=== PATIENT | male | born 1955 | race Caucasian/White ===

== ENCOUNTER → 2018-01-15 09:32 | Outpatient (CLI) | payer BC, SELFPAY ==
[2018-01-15 10:56] LABS: Hematocrit 44.1 % (40-54); Hemoglobin 14.2 g/dl (13.0-16.5); Mean Corp Hgb Conc 32.2 g/gl (32-36); Mean Corpuscular Hgb 31.1 pg (27.0-32.0); Mean Corpuscular Volume 96.5 fL (80-94); Mean Platelet Vol. 9.8 fl (6.2-12.0); Platelet Count 185 K/mm3 (150-450); RBC Distribution Width CV 13.4 % (11.6-14.6); RBC Distribution Width SD 47.8 fl (35.1-43.9); Red Blood Count 4.57 M/mm3 (4.6-6.2); Scan Indicated on CBC? Y/N NO; White Blood Count 6.1 K/mm3 (4.4-11.0)
[2018-01-15 12:04] LABS: ALB/GLOB Ratio 0.8 RATIO (0.9-2.4); AST(SGOT) 31 U/L (15-37); Alanine Aminotransfer ALT/SGPT 46 U/L (16-61); Albumin, Serum 3.4 g/dL (3.2-5.0); Alkaline Phosphatase 119 U/L (45-117); Anion Gap 8 (5-15); BUN 23 mg/dL (7-18); BUN/Creat Ratio 20.4 RATIO (10-20); Calcium,Total 8.4 mg/dL (8.5-10.1); Chloride 108 mmol/L (98-107); Creatinine, Serum 1.13 mg/dL (0.70-1.30); EST Glomerular Filtration Rate 70 mL/min (>60); Est Glom Filt Rate - Afr Amer 85 mL/min (>60); Glucose 245 mg/dL (74-106); Magnesium 2.2 mg/dL (1.6-2.6); Potassium 4.4 mmol/L (3.5-5.1); Prolactin 13.4 ng/mL; Protein, Total 7.4 g/dL (6.4-8.2); Sodium Level 140 mmol/L (136-145)
[2018-01-24 17:05] LABS: Vitamin D,25 Hydroxy 14.8 ng/mL (29.95-100.01)
[2018-01-27 12:20] LABS: PSA, Total Ultrasensitive 0.6 ng/mL (0.0-4.0); Testosterone Free 7.2 pg/mL (6.6-18.1)
== END ==
DX: D35.2 Benign neoplasm of pituitary gland (principal); E55.9 Vitamin D deficiency, unspecified; E29.1 Testicular hypofunction; E83.42 Hypomagnesemia; N42.9 Disorder of prostate, unspecified
CPT/HCPCS: 36415; 80053; 82306; 83735; 84146; 84153; 84154; 84402; 85027

== ENCOUNTER → 2018-04-16 09:37 | Outpatient (CLI) | payer BC, SELFPAY ==
[2018-04-16 12:10] LABS: ALB/GLOB Ratio 0.9 RATIO (0.9-2.4); AST(SGOT) 21 U/L (15-37); Alanine Aminotransfer ALT/SGPT 37 U/L (16-61); Albumin, Serum 3.4 g/dL (3.2-5.0); Alkaline Phosphatase 103 U/L (45-117); Anion Gap 7 (5-15); BUN 18 mg/dL (7-18); BUN/Creat Ratio 15.1 RATIO (10-20); Calcium,Total 9.1 mg/dL (8.5-10.1); Chloride 108 mmol/L (98-107); Cholesterol 101 mg/dL (200); Creatinine, Serum 1.19 mg/dL (0.70-1.30); EST Glomerular Filtration Rate 66 mL/min (>60); Est Glom Filt Rate - Afr Amer 80 mL/min (>60); Globulin 3.7 g/dL (2.2-4.2); Glucose 139 mg/dL (74-106); High Density Lipoprotein 32 mg/dL; Magnesium 2.2 mg/dL (1.6-2.6); Potassium 4.7 mmol/L (3.5-5.1); Prolactin 15.6 ng/mL; Protein, Total 7.1 g/dL (6.4-8.2); Sodium Level 145 mmol/L (136-145); Triglycerides 156 mg/dL; Very Low Density Lipoprotein 31 mg/dL (5-40)
[2018-04-20 08:45] LABS: Vitamin D,25 Hydroxy 65.6 ng/mL (29.95-100.01)
[2018-04-20 12:09] LABS: Testosterone, Free 11.72 ng/dL (5.00-21.00)
[2018-04-20 13:35] LABS: Testosterone, % Free 3.34 % (1.50-4.20); Testosterone, Total 351 ng/dL (264-916)
== END ==
PROVIDERS: Visit Provider Internal Medicine Endocrinology, Diabetes & Metabolism
DX: D35.2 Benign neoplasm of pituitary gland (principal); E78.2 Mixed hyperlipidemia; E55.9 Vitamin D deficiency, unspecified; E29.1 Testicular hypofunction; E83.42 Hypomagnesemia
CPT/HCPCS: 36415; 80053; 80061; 82306; 83735; 84146; 84402; 84403

== ENCOUNTER → 2019-01-13 | Outpatient (CLI) | payer BC, SELFPAY ==
--- NOTE | 2019-01-13 18:15 | MRI_ITS ---
HISTORY:RIGHT foot, 2nd MTPJ plantar plate tear. Pain ball of right foot and 2nd proximal toe If symptoms persist consider mri for further evaluation if clinically indicated. MRI EXAMINATION OF THE Right FOOT COMPARISON: None # of images including paperwork:[id number] TECHNIQUE: Sagittal T1 and STIR, iaxial T1 and T2, and coronal T2-weighted images FINDINGS: Bones: There is minimal marrow edema that is seen within the plantar aspect of the great toe as well as at the medial sesamoid. Subchondral cyst formation is seen at the plantar surface of the great toe. Also at the articular surface of the first metatarsal head. Osteophyte formation is seen at the first metatarsal head. There is also osteophyte formation seen at the second metatarsal head. Minimal edema seen within the second metatarsal head. The remainder of the osseous structures are intact Joints: There is a small joint effusion seen at the first metatarsophalangeal joint. There is also a joint effusion seen at the second metatarsophalangeal joint. This Soft tissues: There is an abnormal appearance to the medial and lateral collateral ligament complex of the second digit seen best on axial T1 weighted images 16 through 18 in addition . In addition there is discontinuity of the plantar plate at this level both medially and laterally. Evaluation in the long axis is limited due to motion The flexor tendons to the second toe are irregular particularly seen on the sagittal plane and suspect a high-grade tear. There is also plantar displacement of the tendon again compatible with a plantar plate tear.The visualized soft tissues are unremarkable. The extensor tendons appear intact. The remainder of the flexor tendons appear intact. Tendons: The visualized foot tendons are intact without splitting, increased or decreased caliber, or discontinuity identified. IMPRESSION: Findings compatible with a plantar plate injury of the second toe as discussed. There is also a suspected high-grade tear involving the flexor tendons to the second toe as discussed. There is also plantar displacement of the flexor tendons. There is a joint effusion at the second metatarsophalangeal joint as well as the first metatarsophalangeal joint with degenerative changes seen at the first metatarsophalangeal joint as well as at the metatarsal medial sesamoid joint at 0213 Reported and signed by: Rhea Ram DO Electronically Signed: Rhea Ram DO at 2:12 EDT Tel , Service support , MRI/Lower Ext/No Jt/w/o
== END | disposition home or self-care (01) ==
PROVIDERS: Referring Provider Podiatrist; Visit Provider Podiatrist
DX: M19.071 Primary osteoarthritis, right ankle and foot (principal); S93.691A Other sprain of right foot, initial encounter; M77.41 Metatarsalgia, right foot
CPT/HCPCS: 73718

== ENCOUNTER → 2022-12-15 | Outpatient (REF) | payer MEDICARE, SELFPAY ==
[2022-12-17 11:09] LABS: KEPPRA (LEVETIRACETAM) 16.9 ug/mL (10.0-40.0)
== END ==
LOC: OLS.SW 05:00
PROVIDERS: Visit Provider Internal Medicine
DX: Z79.899 Other long term (current) drug therapy (principal)
CPT/HCPCS: 36415; 80177